=== PATIENT | male | born 1940 | race Two or more races ===

== ENCOUNTER 2019-08-28 06:08 | Day surgery (SDC) | payer MEDICARE, OTHER ==
[2019-08-23 08:57] LABS: HEMOGLOBIN 16.7 G/DL (14.2-18.0); MEAN CORPUSCULAR VOLUME 83 FL (80-99); PLATELET COUNT 93 K/UL (150-450); RED BLOOD COUNT 5.76 M/UL (4.70-6.10); RED CELL DISTRIBUTION WIDTH 11.1 % (11.6-14.8); WHITE BLOOD COUNT 4.6 K/UL (4.8-10.8)
[2019-08-23 09:06] LABS: ANION GAP 8 mmol/L (5-15); BLOOD UREA NITROGEN 22 mg/dL (7-18); CALCIUM 9.5 MG/DL (8.5-10.1); CARBON DIOXIDE 28 MMOL/L (21-32); CHLORIDE 106 MMOL/L (98-107); CREATININE 0.9 MG/DL (0.55-1.30); POTASSIUM 4.3 MMOL/L (3.5-5.1); SODIUM 142 MMOL/L (136-145)
--- NOTE | 2019-08-23 11:53 | Pre-Procedure Note/Attestation ---
Pre-Procedure Note/Attestation Complete Prior to Procedure Planned Procedure: right Procedure Narrative: Cataract extraction with IOL implant right eye Indications for Procedure Pre-Operative Diagnosis: Posterior subcapsular cataract right eye Attestation I attest that I discussed the nature of the procedure; its benefits; risks and complications; and alternatives (and the risks and benefits of such alternatives ), prior to the procedure, with the patient (or the patient's legal software sales representative). I attest that, if there was a reasonable possibility of needing a blood transfusion, the patient (or the patient's legal software sales representative) was given the [facility] standardized written summary, pursuant to the Jeyson Mouna Blood Safety Act ([place] Health and Safety Code # 1645, as amended). I attest that I re-evaluated the patient just prior to the surgery and that there has been no change in the patient's H&P, except as documented below: Drew Kilgore MD Aug 23, 2019 11:53
--- NOTE | 2019-08-23 11:58 | Opthalmology H&P ---
Ophthalmology H&P H&P Chief Complaint: decreased vision in right eye HPI Vision Affects Ability to: read, manage personal affairs HPI Narrative Blurry vision Exam Visual Acuity: OD Counting Fingers OS 20/60 Tension: OD 12 OS 16 Eye Exam: normal OU: external exam, palpebral fissure-width, marginal reflex distance, levator function, corneas, anterior chambers, fundus exam; findings: lens - +3 PSC Cataract OD Assessment/Plan Treatment Plan: cataract extraction w/ lens implant Goals of Treatment: improvement of vision Attestation Attestation The risks and benefits of the surgery as well as alternative procedures were explained to the patient in detail. Drew Kilgore MD Aug 23, 2019 11:58
[~2019-08-28] VITALS: Ht 160 cm; Wt 56.7 kg
[2019-08-28] VITALS (9 sets, daily range): BP systolic 116–145; BP diastolic 72–91
[2019-08-28] MEDS ORDERED: Proparacaine 0.5% Opth Soln 15ml RIGHT EYE ONE (07:00)
[2019-08-28] MEDS ORDERED: Akten 3.5% 1ml Btl RIGHT EYE ONE (07:00)
[2019-08-28] MEDS ORDERED: Tetracaine 0.5% Opth 4ml Soln RIGHT EYE ONE (07:00)
[2019-08-28] MEDS: Cyclopentolate 1% Opth Sol 2ml RIGHT EYE SCH ×3 (07:20→07:35)
[2019-08-28] MEDS: Tropicamide 1% Opth 15ml Soln RIGHT EYE SCH ×3 (07:21→07:35)
[2019-08-28] MEDS: Phenylephrine 10% Opth Soln 5ml RIGHT EYE SCH ×3 (07:21→07:35)
[2019-08-28] MEDS ORDERED: EPINEPHrine 1mg/1ml Amp ONE (07:25)
[2019-08-28] MEDS ORDERED: acetaZOLAMIDE 500mg Inj ONE (07:26)
[2019-08-28] MEDS ORDERED: Lidocaine 4% Amp ONE (07:26)
[2019-08-28] MEDS ORDERED: BSS 500ml btl ONE (07:26)
[2019-08-28] MEDS ORDERED: Lidocaine 2% MPF 5ml Vial INJ ONE (07:26)
[2019-08-28] MEDS ORDERED: Carbachol 0.01% Op Soln 1.5ml vial ONE (07:26)
[2019-08-28] MEDS ORDERED: Bupivacaine 0.75% 30ml vial INJ ONE (07:27)
[2019-08-28] MEDS ORDERED: Povidone-Iodine 5% opth solution ONE (07:27)
[2019-08-28] MEDS ORDERED: BSS 15ml BTL ONE (07:27)
[2019-08-28] MEDS ORDERED: Sodium Hyaluronate 14 mg/ml 0.85ml ONE (07:28)
[2019-08-28] MEDS ORDERED: Midazolam 2mg/2ml Inj ONE (09:01)
[2019-08-28] MEDS ORDERED: LR 1000ml 1,000 ML IVLG SCH (09:05)
--- NOTE | 2019-08-28 09:09 | Anethesia Preoperative Eval ---
Anesthesia Pre-op PMH/ROS General Date of Evaluation: Aug 28, 2019 Time of Evaluation: 09:30 Anesthesiologist: Ne ASA Score: ASA 3 Mallampati Score Class I : Soft palate, uvula, fauces, pillars visible Class II: Soft palate, uvula, fauces visible Class III: Soft palate, base of uvula visible Class IV: Only hard plate visible Mallampati Classification: Class II Surgeon: Magui Diagnosis: Cataract Surgical Procedure: Cat Ext IOL OD Anesthesia History: none Family History: no anesthesia problems Allergies: Coded Allergies: No Known Allergies (Unverified , 08/23/19) Medications: see eMAR Patient NPO?: Yes Past Medical History Cardiovascular: Reports: HTN, other - HL Pulmonary: Reports: COPD Neurologic/Psychiatric: Reports: depression/anxiety HEENT: Reports: cataract (L), cataract (R) Hematology/Immune: Reports: other - HEP C PSxH Narrative: L 5th Finger SX Anesthesia Pre-op Phys. Exam Physician Exam Last Vital Signs Date Time Temp Pulse Resp B/P (MAP) Pulse Ox O2 Delivery O2 Flow Rate FiO2 08/28/19 07:29 Room Air 08/28/19 07:23 97.1 68 18 129/72 95 Constitutional: NAD Neurologic: CN 2-12 intact Cardiovascular: RRR Respiratory: CTA Gastrointestinal: S/NT/ND Airway Exam Mallampati Score: Class II MO: limited ROM: limited Teeth: missing, intact Anesthesia Pre-op A/P Risk Assessment & Plan Assessment: ASA 3 Plan: GA Status Change Before Surgery: No Rodger Olivia MD Aug 28, 2019 09:09
--- NOTE | 2019-08-28 09:11 | Immediate Post-Op Evaluation ---
Immediate Post-Op Evalulation Immediate Post-Op Evalulation Procedure: Cat Ext IOL OD Date of Evaluation: Aug 28, 2019 Time of Evaluation: 10:19 IV Fluids: 600 LR Blood Products: 0 Estimated Blood Loss: 1 Urinary Output: 0 Blood Pressure Systolic: 145 Blood Pressure Diastolic: 91 Pulse Rate: 68 Respiratory Rate: 16 O2 Sat by Pulse Oximetry: 99 Temperature (Fahrenheit): 98.1 Pain Score (1-10): 1 Nausea: No Vomiting: No Complications 0 Patient Status: awake, reacts, patent, none Hydration Status: adequate Rodger Olivia MD Aug 28, 2019 09:11
--- NOTE | 2019-08-28 09:12 | 48 Hour Post Anesthesia Eval ---
Post Anesthesia Evaluation Procedure: Cat Ext IOL OD Date of Evaluation: Aug 28, 2019 Time of Evaluation: 12:32 Blood Pressure Systolic: 141 0: 89 Pulse Rate: 65 Respiratory Rate: 18 Temperature (Fahrenheit): 98.3 O2 Sat by Pulse Oximetry: 98 Airway: patent Nausea: No Vomiting: No Pain Intensity: 1 Hydration Status: adequate Cardiopulmonary Status: Stable Mental Status/LOC: patient returned to baseline Follow-up Care/Observations: 0 Post-Anesthesia Complications: 0 Follow-up care needed: ready to discharge Rodger Olivia MD Aug 28, 2019 09:12
[2019-08-28] MEDS ORDERED: HYDROcodone/Acetamin 7.5/325 tab ORAL PRN (09:15)
[2019-08-28] MEDS ORDERED: DiphenhydrAMINE 50mg/ml Inj IVP PRN (09:15)
[2019-08-28] MEDS ORDERED: fentaNYL 100 mcg/2 mL IV PRN (09:15)
[2019-08-28] MEDS ORDERED: HYDROcodone/Acetamin 5/325 tab ORAL PRN (09:15)
[2019-08-28] MEDS ORDERED: Ketorolac 30mg Inj IV PRN ×2 (09:15)
[2019-08-28] MEDS ORDERED: Atropine Sulfate 0.4mg/ml inj IVP PRN (09:15)
[2019-08-28] MEDS ORDERED: oxyCODONE HCL/Acetaminophen 5/325mg ORAL PRN (09:15)
[2019-08-28] MEDS ORDERED: Metoclopramide 10mg/2ml Inj IVP PRN (09:15)
[2019-08-28] MEDS ORDERED: Midazolam 2mg/2ml Inj IVP PRN (09:15)
[2019-08-28] MEDS ORDERED: Meperidine 50mg/ml Inj(FOR RIGORS ONLY) IVP PRN (09:15)
[2019-08-28] MEDS ORDERED: Hydromorphone 0.5mg/0.5ml inj IVP PRN (09:15)
[2019-08-28] MEDS ORDERED: Labetalol 5mg/ml 20ml vial IV PRN (09:15)
[2019-08-28] MEDS ORDERED: LORazepam Inj 2mg/ml 1ml IV PRN (09:15)
[2019-08-28] MEDS ORDERED: Sterile Water Irrig 1000ml IRRIG ONE (09:30)
[2019-08-28] MEDS ORDERED: Propofol 200mg/20ml IV ONE (09:30)
[2019-08-28] MEDS ORDERED: Pilocarpine 1% Opth 15ml Soln ONE (09:30)
[2019-08-28] MEDS ORDERED: NS Irrig 1000ml ONE (09:30)
[2019-08-28] MEDS ORDERED: Polysporin Oint 15gm TOPIC ONE (09:30)
[2019-08-28] MEDS ORDERED: LR 1000ml ONE (09:30)
[2019-08-28] MEDS ORDERED: Lidocaine 1% MPF 10mg/ml 5ml ONE (09:30)
[2019-08-28] MEDS ORDERED: Dexamethasone 4mg/ml vial ONE (09:30)
[2019-08-28] MEDS ORDERED: Pred Forte 1% Opth Susp 1ml ONE (09:30)
--- NOTE | 2019-08-28 15:30 | Pre-op HX & Phy Repo 2 SIG ---
DATE OF ADMISSION: 08/28/2019 PRESURGICAL INTERNAL MEDICINE HISTORY AND PHYSICAL REASON FOR EVALUATION: I was asked by Dr. Drew Kilgore to see this 78-year-old male, who is going for elective surgery on the right eye. The patient has nuclear sclerotic cataract, right eye. Please see History and Physical by Dr. Drew Kilgore. The patient was evaluated in the outpatient surgical procedure department of [facility]. The patient is alert, well-developed, well-nourished male in his 70s. No acute distress. PAST MEDICAL HISTORY AND REVIEW OF SYSTEMS: Remarkable for history of hypertension. No history of heart attack. History of type 2 diabetes, but stopped treatment about 2 years ago and controlled by diet. The patient has history of emphysema, COPD. Smoker. No history of heart attack. Denies history of ulcer disease or heartburn. The patient has history of hepatitis C. Denies history of anemia or thyroid problem or renal failure. No prostate problem. PAST SURGICAL HISTORY: Left inguinal hernia repair many years ago and fifth finger amputee about 5 weeks ago due to infection. FAMILY HISTORY: Unknown. The patient is an orphan from infancy. ALLERGIES: Not known. PRESENT MEDICATIONS: Takes 1 antihypertension pill once a day. SOCIAL HISTORY: The patient was a heavy smoker for 30 years and stopped 20 years ago. Denies alcohol or street drug use. PHYSICAL EXAMINATION: GENERAL: Alert, well-developed, well-nourished male, small framed. VITAL SIGNS: Blood pressure 129/72, temperature 97.1, pulse 68, respirations 18, O2 saturation 95%. BMI is 22 kilogram/meter square. SKIN: Dry, clear. Tattoo on the chest. LYMPHATICS: No lymph node enlargement. HEENT: Head, normocephalic and atraumatic. Ears, clear. Eyes, full description per Dr. Drew Kilgore. Mouth, clear and moist. Absent of the few bottom teeth. NECK: Supple. No jugular venous distention. Carotids artery +2. Trachea midline. CHEST: No deformity or asymmetry. LUNGS: Clear. No rales or rhonchi. HEART: Sinus rhythm. No ectopy. No murmur. No S3, S4. ABDOMEN: Soft, benign. Liver and spleen not enlarged. No rebound. EXTREMITIES: No peripheral edema. Degenerative joint disease, knee. No varicose vein. No calf tenderness. NERVOUS SYSTEM: II through XII in normal limits. No tremor. No nystagmus. LABORATORY AND DIAGNOSTIC DATA: Sodium 140, potassium 4.3, BUN 22, creatinine 0.9, blood sugar 119, calcium 9.5. CBC - white blood cells 4.6 thousand, hemoglobin 16.7, hematocrit 48%. EKG, sinus rhythm 64 per minute with occasional PVCs. The patient did not eat or drink from 8 p.m. yesterday. IMPRESSION: 1. Nuclear sclerotic cataract, right eye. 2. Hypertension, controlled. 3. COPD. 4. Degenerative joint disease, knee. PLAN: Cataract extraction, right eye with intraocular lens implant per Dr. Drew Kilgore. CONCLUSION: The patient is a 78-year-old male, has history of hypertension, which is controlled with 1 medication. The patient has EKG sinus with PVCs. Laboratory work, no significant changes with mild elevation of BUN and low white blood cells. The patient did not eat from 4 p.m. yesterday. His condition optimized for surgery. Thank you very much, Dr. Drew Kilgore, for privilege to participate in presurgical care of this interesting patient. Yulia Yanes M.D. DR: STEPHANIE JOB#: [id number] CC:
--- NOTE | 2019-08-29 10:47 | Brief Operative Note ---
Immediate Post Operative Note Operative Note Chief Complaint: Blurry vision Pre-op Diagnosis: Posterior subcapsular cataract right eye Procedure: Cataract extraction with IOL implant right eye Post-op Diagnosis: Pseudophakia OD Findings: consistent w/pre-op dx studies Surgeon: Drew Kilgore MD Anesthesiologist: Rodger Mcguire MD Anesthesia: MAC Specimen: none Complications: none Condition: stable Fluids: LR Estimated Blood Loss: none Drains: none Implant(s) used?: Yes - IOL OD Drew Kilgore MD Aug 29, 2019 10:47
--- NOTE | 2019-08-29 11:00 | Operative Note - PDOC ---
Operative Note Operative Note Date of Operation/Procedure: Aug 28, 2019 Chief Complaint: Blurry vision Pre-op Diagnosis: Posterior subcapsular cataract right eye Procedure: Cataract extraction with IOL implant right eye Post-op Diagnosis: Pseudophakia OD Operative Findings: consistent w/pre-op dx studies Surgeon: Drew Kilgore MD Anesthesiologist: Rodger Mcguire MD Anesthesia: MAC Specimen: none Complications: none Condition: stable Fluids: LR Estimated Blood Loss: none Drains: none Implant(s) used?: Yes - IOL OD Indications for Procedure Posterior subcapsular cataract causing blurry vision on right eye Description of Procedure This patient has been complaining visually significant cataract in the right eye with the best corrected visual acuity of counting fingers. The patient complains of difficulties in performing activities of daily living and wants to manage personal affairs with comfort and accuracy and see well enough to move with safety at home and outdoors. The risks, benefits and alternatives of the procedure were discussed with the patient in the office prior to scheduling surgery. All questions from the patient were answered after the surgical procedure was explained in detail. The risks of the procedure as explained to the patient include, but are not limited to, pain, infection, bleeding, loss of vision, retinal detachment, need for further surgery, loss of lens nucleus, double vision, etc. Alternative procedures were discussed which include, to do nothing or seek a second opinion. Informed consent for this procedure was obtained from the patient. The patient was referred to a primary care physician for a cardiopulmonary clearance prior to surgery, after proper evaluation was done patient was properly scheduled for outpatient surgery. The patient was brought to the operating room where the anesthesiologist established I.V. lines and cardiac monitoring leads. Mild intravenous sedation was administered. The patient was then prepared with a 5% solution of povidone -iodine to the conjunctival fornix and lashes, and a 5% solution of povidone- iodine to the lids and periorbital skin. The patient was then draped in the usual sterile fashion. A lid speculum was then placed in the operative eye. A keratome blade was then used to create a biplanar incision into the anterior chamber. Viscoelastics was then instilled into the anterior chamber. A capsulorrhexis was then fashioned with an utrata forceps A G 27 cannula was used to hydrodissect and hydro delineate the lens nucleus. Paracentesis incision was made at 3 o'clock with sharp blade. The phacoemulsification unit, after being properly adjusted and tested, was then used to emulsify the nucleus. Residual cortical material was aspirated with the irrigation and aspiration unit. Healon was then instilled into the anterior chamber. The corneal wound was then enlarged to the size of the optic with the marla keratome blade. The intraocular lens was then inspected for right power and size and thought to be satisfactory. Then the lens was gently placed in the capsular bag. Positioning within the capsular bag was confirmed by direct visualization. Optic centration was accomplished with a Sinskey hook. Viscoelastics was removed from the anterior chamber using the irrigation and aspiration unit. The corneal wound was then tested for leaks and none were found. The lid speculum were then removed. Sponge and needle counts were correct. An eye patch and shield were placed over the operative eye. The patient was taken to the recovery room in stable condition. There were no complications. The patient tolerated the procedure well. The patient was then transferred to the ambulatory surgery unit in stable and satisfactory condition , was given detailed written instructions and asked to follow up in the office the next day. Drew Kilgore MD Aug 29, 2019 11:00
== END 2019-08-28 11:20 | disposition home or self-care (01) ==
LOC: SUR 06:08
DX: H25.041 Posterior subcapsular polar age-related cataract, right eye (principal); I10 Essential (primary) hypertension; E11.9 Type 2 diabetes mellitus without complications; J44.9 Chronic obstructive pulmonary disease, unspecified; Z86.19 Personal history of other infectious and parasitic diseases; Z89.021 Acquired absence of right finger(s); Z87.891 Personal history of nicotine dependence; M17.10 Unilateral primary osteoarthritis, unspecified knee
CPT/HCPCS: 36415; 66984; 80048; 85007; 85025; 93005; J1100; J2250; J2704; J7120; V2632; 94003; 94150

== ENCOUNTER 2020-01-01 06:26 | Day surgery (SDC) | payer MEDICARE, OTHER ==
--- NOTE | 2019-12-27 09:26 | Opthalmology H&P ---
Ophthalmology H&P H&P Chief Complaint: decreased vision in left eye HPI Vision Affects Ability to: read, manage personal affairs HPI Narrative Blurry vision Exam Visual Acuity: OD 20/80 OS 20/160 Tension: OD 11 OS 10 Eye Exam: normal OU: external exam, palpebral fissure-width, marginal reflex distance, levator function, corneas, anterior chambers, fundus exam; findings: lens - Pseudophakia OD,NS Cataract OS Assessment/Plan Treatment Plan: cataract extraction w/ lens implant Goals of Treatment: improvement of vision, enhance quality of life Attestation Attestation The risks and benefits of the surgery as well as alternative procedures were explained to the patient in detail. Drew Kilgore MD December 27, 2019 09:26
--- NOTE | 2019-12-27 09:28 | Pre-Procedure Note/Attestation ---
Pre-Procedure Note/Attestation Complete Prior to Procedure Planned Procedure: left Procedure Narrative: Cataract extraction with IOL implant left eye Indications for Procedure Pre-Operative Diagnosis: Nuclear sclerotic/cortical cataract left eye Attestation I attest that I discussed the nature of the procedure; its benefits; risks and complications; and alternatives (and the risks and benefits of such alternatives ), prior to the procedure, with the patient (or the patient's legal front office representative). I attest that, if there was a reasonable possibility of needing a blood transfusion, the patient (or the patient's legal front office representative) was given the [facility] standardized written summary, pursuant to the Jeyson Mouna Blood Safety Act ([place] Health and Safety Code # 1645, as amended). I attest that I re-evaluated the patient just prior to the surgery and that there has been no change in the patient's H&P, except as documented below: Drew Kilgore MD December 27, 2019 09:28
[2019-12-29 10:59] LABS: HEMATOCRIT 44.1 % (42.0-52.0); HEMOGLOBIN 15.9 G/DL (14.2-18.0); MEAN CORPUSCULAR VOLUME 80 FL (80-99); PLATELET COUNT 98 K/UL (150-450); RED BLOOD COUNT 5.54 M/UL (4.70-6.10); RED CELL DISTRIBUTION WIDTH 11.7 % (11.6-14.8); WHITE BLOOD COUNT 4.3 K/UL (4.8-10.8)
[2019-12-29 11:17] LABS: ANION GAP 11 mmol/L (5-15); BLOOD UREA NITROGEN 11 mg/dL (7-18); CALCIUM 8.9 MG/DL (8.5-10.1); CARBON DIOXIDE 26 MMOL/L (21-32); CHLORIDE 106 MMOL/L (98-107); CREATININE 0.9 MG/DL (0.55-1.30); POTASSIUM 3.7 MMOL/L (3.5-5.1); SODIUM 143 MMOL/L (136-145)
--- NOTE | 2019-12-29 14:00 | Pre-op HX & Phy Repo 2 SIG ---
DATE OF ADMISSION: 01/01/2020 PRESURGICAL INTERNAL MEDICINE HISTORY AND PHYSICAL DATE OF EVALUATION: 12/29/2019. REASON FOR EVALUATION: I was asked by Dr. Drew Kilgore to see this 79-year-old male, who is going for elective surgery on the left eye on January 01, 2020. The patient has a nuclear sclerotic cataract, left eye. Please see history and physical by Dr. Drew Kilgore. The patient was evaluated in the outpatient procedure department of [facility]. The patient is alert, elderly male, due to frequent falls. PAST MEDICAL HISTORY: Remarkable for hypertension, COPD, history of myocardial infarction in 1982, history of depression. Denies history of diabetes. Denies history of stroke or seizures. Denies history of anemia. No thyroid problem. No history of renal insufficiency or prostate problem. PAST SURGICAL HISTORY: Appendectomy and tip of the fifth finger removed due to infection. ALLERGIES: Not known. PRESENT MEDICATIONS: Include [place], blood pressure medication, antidepressant, Singulair, and albuterol. FAMILY HISTORY: Mother from complications of diabetes and father had heart attack. The patient's and son from renal insufficiency. HABITS: The patient smoked for 35 years and stopped 22 years ago. He was heavy drinker and stopped 22 [address] drugs. PHYSICAL EXAMINATION: GENERAL: Alert, well-developed, well-nourished male in his 70s, in no acute distress. VITAL SIGNS: Blood pressure 141/84, temperature 98.3, pulse 69, O2 saturation 97% on room air. SKIN: Clear and warm. No cyanosis, rashes, or diaphoresis. LYMPH NODES: Not enlarged. HEENT: Head, normocephalic, atraumatic. Ears, clear. No discharge. Eyes, full description per Dr. Drew Kilgore. Mouth, clear and moist. Absence of some teeth. No dentures. Nose clear. No discharge. NECK: Supple. No jugular venous distention. Carotids artery +2. Trachea midline. CHEST: No deformity or asymmetry. LUNGS: Clear to auscultation and percussion. No rales or rhonchi. HEART: Sinus rhythm. There is ectopy. No murmur. No S3, S4. ABDOMEN: Soft, benign. Liver and spleen not enlarged. Obese. No rebound. EXTREMITIES: No peripheral edema. No varicose veins. No calf tenderness. NERVOUS SYSTEM: No asymmetry. No nystagmus. The patient is depressed. DIAGNOSTIC DATA: ECG, sinus rhythm 86 per minute, premature atrial contraction in bigeminy pattern. LAB WORK: Collected and pending. The patient to be NPO after midnight January 01, 2020. IMPRESSION: 1. Nuclear sclerotic cataract, left eye. 2. Hypertension, controlled. 3. COPD, controlled. 4. Depression. PLAN: Cataract extraction, left eye with intraocular lens implant per Dr. Drew Kilgore. CONCLUSION: The patient is a 79-year-old male has history of COPD, depression, and hypertension, which is fairly controlled. The patient's condition optimized for surgery. Thank you very much, Dr. Kilgore, for privilege to participate in presurgical care of this interesting patient. Yulia Yanes M.D. DR: EZEQUIEL JOB#: [id number] CC:
[~2020-01-01] VITALS: Ht 160 cm; Wt 59.0 kg
[2020-01-01] VITALS (8 sets, daily range): BP systolic 130–159; BP diastolic 63–90
[~2020-01-01 06:26] MED LIST: BREO ELLIPTA 11 EACH IH; GABAPENTIN600 MG ORAL; HYDROCODON-ACE1 EA15 ORAL; MELOXICAM7.5 MG PO; MIRTAZAPINE15 M3 ORAL; NITRO0.4 SL; NORVASC5 MG ORAL; OMEPRAZOLE20 M2 ORAL; SMZ-TMP DS PO
[2020-01-01] MEDS: Phenylephrine 10% Opth Soln 5ml LEFT EYE SCH ×3 (06:53→07:16)
[2020-01-01] MEDS: Tropicamide 1% Opth 15ml Soln LEFT EYE SCH ×3 (06:53→07:16)
[2020-01-01] MEDS: Diclofenac Sod 0.1% Op Soln LEFT EYE SCH ×3 (06:53→07:16)
[2020-01-01] MEDS: Cyclopentolate 1% Opth Sol 2ml LEFT EYE SCH ×3 (06:53→07:16)
[2020-01-01] MEDS: Tobramycin Op Soln 0.3% 5ml LEFT EYE SCH ×3 (06:53→07:16)
[2020-01-01] MEDS ORDERED: Pilocarpine 1% Opth 15ml Soln ONE (07:00)
[2020-01-01] MEDS ORDERED: Akten 3.5% 1ml Btl LEFT EYE ONE (07:00)
[2020-01-01] MEDS ORDERED: Tetracaine 0.5% Opth 4ml Soln LEFT EYE ONE (07:00)
[2020-01-01] MEDS ORDERED: Dexamethasone 4mg/ml vial ONE (07:00)
[2020-01-01] MEDS ORDERED: prednisoLONE acetate 1% Opth Susp 1ml ONE (07:00)
[2020-01-01] MEDS ORDERED: Proparacaine 0.5% Opth Soln 15ml LEFT EYE ONE (07:00)
[2020-01-01] MEDS ORDERED: Polysporin Oint 15gm TOPIC ONE (07:00)
[2020-01-01] MEDS ORDERED: LR 1000ml 1,000 ML IVLG SCH (08:10)
[2020-01-01] MEDS ORDERED: Midazolam 2mg/2ml Inj IVP PRN (08:15)
[2020-01-01] MEDS ORDERED: fentaNYL 100 mcg/2 mL IV PRN (08:15)
[2020-01-01] MEDS ORDERED: DiphenhydrAMINE 50mg/ml Inj IVP PRN (08:15)
[2020-01-01] MEDS ORDERED: HYDROcodone/Acetamin 5/325 tab ORAL PRN (08:15)
[2020-01-01] MEDS ORDERED: HYDROcodone/Acetamin 7.5/325 tab ORAL PRN (08:15)
[2020-01-01] MEDS ORDERED: Meperidine 25mg/0.5ml Inj (FOR RIGORS ONLY) IV PRN (08:15)
[2020-01-01] MEDS ORDERED: Atropine Sulfate 0.4mg/ml inj IVP PRN (08:15)
[2020-01-01] MEDS ORDERED: Ketorolac 30mg Inj IV PRN ×2 (08:15)
[2020-01-01] MEDS ORDERED: Labetalol 5mg/ml 20ml vial IV PRN (08:15)
[2020-01-01] MEDS ORDERED: Metoclopramide 10mg/2ml Inj IVP PRN (08:15)
[2020-01-01] MEDS ORDERED: Hydromorphone 0.5mg/0.5ml inj IVP PRN (08:15)
[2020-01-01] MEDS ORDERED: oxyCODONE HCL/Acetaminophen 5/325mg ORAL PRN (08:15)
[2020-01-01] MEDS ORDERED: LORazepam Inj 2mg/ml 1ml IV PRN (08:15)
--- NOTE | 2020-01-01 08:22 | Anethesia Preoperative Eval ---
Anesthesia Pre-op PMH/ROS General Date of Evaluation: January 01, 2020 Time of Evaluation: 08:49 Anesthesiologist: Ne ASA Score: ASA 3 Mallampati Score Class I : Soft palate, uvula, fauces, pillars visible Class II: Soft palate, uvula, fauces visible Class III: Soft palate, base of uvula visible Class IV: Only hard plate visible Mallampati Classification: Class II Surgeon: Magui Diagnosis: Nuclear Sclerotic Cornea, OD Surgical Procedure: Cat Ext IOL OD Anesthesia History: none Family History: no anesthesia problems Allergies: Coded Allergies: No Known Allergies (Unverified , 08/23/19) Medications: see eMAR Patient NPO?: Yes Past Medical History Cardiovascular: Reports: HTN, CAD, [place], other - HL Pulmonary: Reports: asthma, COPD, other - Bronchitis Gastrointestinal/Genitourinary: Reports: other - HEP C Neurologic/Psychiatric: Reports: depression/anxiety PSxH Narrative: Appendectomy, L Thumb SX Anesthesia Pre-op Phys. Exam Physician Exam Last Vital Signs Date Time Temp Pulse Resp B/P (MAP) Pulse Ox O2 Delivery O2 Flow Rate FiO2 01/01/20 07:34 Room Air 01/01/20 07:10 97.5 61 18 133/74 95 Constitutional: NAD Neurologic: CN 2-12 intact Cardiovascular: RRR Respiratory: CTA Gastrointestinal: S/NT/ND Airway Exam Mallampati Score: Class II MO: full ROM: limited Teeth: missing, intact Anesthesia Pre-op A/P Risk Assessment & Plan Assessment: ASA 3 Plan: TIVA Status Change Before Surgery: No Rodger Olivia MD January 01, 2020 08:22
--- NOTE | 2020-01-01 08:23 | Immediate Post-Op Evaluation ---
Immediate Post-Op Evalulation Immediate Post-Op Evalulation Procedure: Cat Ext IOL OD Date of Evaluation: January 01, 2020 Time of Evaluation: 10:00 IV Fluids: 1300 LR Blood Products: 0 Estimated Blood Loss: 2 Urinary Output: 0 Blood Pressure Systolic: 159 Blood Pressure Diastolic: 84 Pulse Rate: 67 Respiratory Rate: 16 O2 Sat by Pulse Oximetry: 98 Temperature (Fahrenheit): 97.7 Pain Score (1-10): 2 Nausea: No Vomiting: No Complications 0 Patient Status: awake, reacts, patent, none Hydration Status: adequate Rodger Olivia MD January 01, 2020 08:23
--- NOTE | 2020-01-01 08:23 | 48 Hour Post Anesthesia Eval ---
Post Anesthesia Evaluation Procedure: Cat Ext IOL OD Date of Evaluation: January 01, 2020 Time of Evaluation: 12:11 Blood Pressure Systolic: 161 0: 86 Pulse Rate: 73 Respiratory Rate: 16 Temperature (Fahrenheit): 97.7 O2 Sat by Pulse Oximetry: 99 Airway: patent Nausea: No Vomiting: No Pain Intensity: 1 Hydration Status: adequate Cardiopulmonary Status: Stable Mental Status/LOC: patient returned to baseline Follow-up Care/Observations: 0 Post-Anesthesia Complications: 0 Follow-up care needed: ready to discharge Rodger Olivia MD January 01, 2020 08:23
[2020-01-01] MEDS ORDERED: Midazolam 2mg/2ml Inj ONE (08:36)
[2020-01-01] MEDS ORDERED: Lidocaine 1% MPF 10mg/ml 5ml ONE (09:00)
[2020-01-01] MEDS ORDERED: NS Irrig 1000ml ONE (09:00)
[2020-01-01] MEDS ORDERED: Sterile Water Irrig 1000ml IRRIG ONE (09:00)
[2020-01-01] MEDS ORDERED: LR 1000ml ONE (09:00)
--- NOTE | 2020-01-02 09:38 | Brief Operative Note ---
Immediate Post Operative Note Operative Note Chief Complaint: Blurry vision Pre-op Diagnosis: Nuclear sclerotic/cortical cataract left eye Procedure: Cataract extraction with IOL implant left eye Post-op Diagnosis: Pseudophakia OS Findings: consistent w/pre-op dx studies Surgeon: Drew Kilgore MD Anesthesiologist: Rodger Mcguire MD Anesthesia: MAC Specimen: none Complications: none Condition: stable Fluids: LR Estimated Blood Loss: none Drains: none Implant(s) used?: Yes - IOL-OS Drew Kilgore MD January 02, 2020 09:38
--- NOTE | 2020-01-02 09:45 | Operative Note - PDOC ---
Operative Note Operative Note Date of Operation/Procedure: January 01, 2020 Chief Complaint: Blurry vision Pre-op Diagnosis: Nuclear sclerotic/cortical cataract left eye Procedure: Cataract extraction with IOL implant left eye Post-op Diagnosis: Pseudophakia OS Operative Findings: consistent w/pre-op dx studies Surgeon: Drew Kilgore MD Anesthesiologist: Rodger Mcguire MD Anesthesia: MAC Specimen: none Complications: none Condition: stable Fluids: LR Estimated Blood Loss: none Drains: none Implant(s) used?: Yes - IOL-OS Indications for Procedure Cortical nuclear sclerotic cataract left eye Description of Procedure This patient has been complaining visually significant cataract in the left eye with the best corrected visual acuity of 20/50 under moderate glare conditions worse. The patient complains of difficulties with glare in performing activities of daily living and wants to manage personal affairs with comfort and accuracy and see well enough to move with safety at home and outdoors. The risks, benefits and alternatives of the procedure were discussed with the patient in the office prior to scheduling surgery. All questions from the patient were answered after the surgical procedure was explained in detail. The risks of the procedure as explained to the patient include, but are not limited to, pain, infection, bleeding, loss of vision, retinal detachment, need for further surgery, loss of lens nucleus, double vision, etc. Alternative procedures were discussed which include, to do nothing or seek a second opinion. Informed consent for this procedure was obtained from the patient. The patient was referred to a primary care physician for a cardiopulmonary clearance prior to surgery, after proper evaluation was done patient was properly scheduled for outpatient surgery. The patient was brought to the operating room where the anesthesiologist established I.V. lines and cardiac monitoring leads. Mild intravenous sedation was administered. The patient was then prepared with a 5% solution of povidone -iodine to the conjunctival fornix and lashes, and a 5% solution of povidone- iodine to the lids and periorbital skin. The patient was then draped in the usual sterile fashion. A lid speculum was then placed in the operative eye. A keratome blade was then used to create a biplanar incision into the anterior chamber. Viscoelastics was then instilled into the anterior chamber. A capsulorrhexis was then fashioned with an utrata forceps A G 27 cannula was used to hydrodissect and hydro delineate the lens nucleus. Paracentesis incision was made at 3 o'clock with sharp blade. The phacoemulsification unit, after being properly adjusted and tested, was then used to emulsify the nucleus. Residual cortical material was aspirated with the irrigation and aspiration unit. Healon was then instilled into the anterior chamber. The corneal wound was then enlarged to the size of the optic with the marla keratome blade. The intraocular lens was then inspected for right power and size and thought to be satisfactory. Then the lens was gently placed in the capsular bag. Positioning within the capsular bag was confirmed by direct visualization. Optic centration was accomplished with a Sinskey hook. Viscoelastics was removed from the anterior chamber using the irrigation and aspiration unit. The corneal wound was then tested for leaks and none were found. The lid speculum were then removed. Sponge and needle counts were correct. An eye patch and shield were placed over the operative eye. The patient was taken to the recovery room in stable condition. There were no complications. The patient tolerated the procedure well. The patient was then transferred to the ambulatory surgery unit in stable and satisfactory condition , was given detailed written instructions and asked to follow up in the office the next day. Drew Kilgore MD January 02, 2020 09:45
== END 2020-01-01 11:05 | disposition home or self-care (01) ==
LOC: SUR 06:26
DX: H25.12 Age-related nuclear cataract, left eye (principal); H25.012 Cortical age-related cataract, left eye; J44.9 Chronic obstructive pulmonary disease, unspecified; I25.2 Old myocardial infarction; F32.9 Major depressive disorder, single episode, unspecified; Z90.89 Acquired absence of other organs; Z79.899 Other long term (current) drug therapy; I11.9 Hypertensive heart disease without heart failure; I25.10 Atherosclerotic heart disease of native coronary artery without angina pectoris; Z86.19 Personal history of other infectious and parasitic diseases; F41.9 Anxiety disorder, unspecified
CPT/HCPCS: 36415; 66984; 80048; 85007; 85025; 85610; 85730; 94003; J1100; J2250; J2704; J7120; V2632; 94150